=== PATIENT | male | born 1950 | race Caucasian/White ===

== ENCOUNTER 2024-07-05 12:52 | Inpatient (IN) | payer MEDICARE, SELFPAY ==
[2024-07-05 12:53] VITALS: BP 65/46; PULSE 112; RESP 12; TEMP 36.8; O2SAT 72
--- NOTE | 2024-07-05 12:59 | W.ED.MALEGU ---
HPI - Male Genitourinary General: Chief complaint: Urogenital-Male Stated complaint: needs a catheter placed Time Seen by Provider: 07/05/24 12:55 Source: EMS Mode of arrival: EMS Limitations: altered mental status History of Present Illness: 74-year-old male who has a history of lung cancer is here with his hospice nurse as he has pulled out his Buitrago's and they are unable to get a Buitrago placed him she states he needs a Buitrago for comfort due to urinary retention patient currently is altered which is his baseline and he is currently on hospice Related Data Home Medications Medication Instructions Recorded Confirmed Unable to Assess 07/05/24 07/05/24 Allergies Allergy/AdvReac Type Severity Reaction Status Date / Time No Known Allergies Allergy Verified 07/05/24 13:04 Review of Systems General: Reports: ROS unobtainable due to mental status Physical Exam Const: COMMON NORMALS: negative for patient oriented x3 HENMT: COMMON NORMALS: normocephalic and atraumatic HEAD & SCALP: normocephalic and atraumatic Eye: COMMON NORMALS: conjunctivae normal CONJUNCTIVA: Yes conjunctivae normal Neck/C-Spine: COMMON NORMALS: full ROM and supple Chest: COMMONS NORMALS: normal inspection of the chest Resp: EFFORT & INSPECTION: Yes respiratory distress Extremity: COMMON NORMALS: normal to inspection and full ROM Neuro: COMMON NORMALS: moves all extremities and no focal motor deficits; negative for patient oriented x3 Psych: COMMON NORMALS: mental status grossly normal, Normal thought process present and cooperative THOUGHT PROCESS: Normal thought process present Skin: COMMON NORMALS: no rashes or lesions noted and no wounds GENERAL SKIN EXAM: no rashes or lesions noted Course Vital Signs: Vital signs: Vital Signs Temperature 98.2 F 07/05/24 12:53 Pulse Rate 112 H 07/05/24 12:53 Respiratory Rate 12 07/05/24 12:53 Blood Pressure 65/46 07/05/24 12:53 Pulse Oximetry 72 L 07/05/24 12:53 Oxygen Delivery Me thod Nasal Cannula 07/05/24 12:53 Oxygen Flow Rate 5 07/05/24 12:53 MDM - Male Medical Decision Making Patient presents here originally for urinary retention was not able to place a Buitrago patient has been decompensated here in family wants him to be admitted here on hospice spoke to the hospitalist and will admit at this time Medical Records I reviewed the patient's medical records. No radiology studies performed this visit Discharge Plan Discharge Patient Disposition: Admitted As Inpatient Clinical Impression: Hospice care Condition: Stable Prescriptions: No Action Unable to Assess Coding Level of Care Code ED Health Service Coordinator for Chay Valdez
--- NOTE | 2024-07-05 13:39 | PC.PHAR ---
patient is on hospice, went into room and family told me that he was on hospice and not to worry about current med list as they take care of all that at this time
--- NOTE | 2024-07-05 14:53 | PM.HP ---
Providers/Chief Complaint Admitting Physician: Roseline Vasquez MD Chief Complaint: needs a catheter placed History of Present Illness Roberto Acevedo is a 74 year old male with past medical history of lung cancer COPD hypertension hyperlipidemia BPH who presented to the hospital today after pulling out his Buitrago catheter. Patient is currently on hospice. He was sent home with hospice from [facility] progressively worsening altered mental status hallucinations. Originally he was admitted there for [facility] for shortness of breath generalized weakness COVID A-fib with RVR bacterial pneumonia and was given IV antibiotics eventually discharged home however was readmitted for progressively worsening. Patient elected to go home with hospice. He has had a progressive decline in the last 24 hours. When patient was brought to the ER he was unresponsive pupils dilated. Blood pressure 60/40, tachycardic, saturating 87% on 5 L nasal cannula which is currently in his mouth. Family at bedside. Discussed with family regarding comfort measures and initially did discuss trying a coud? catheter. Nurse was unable to place a Buitrago earlier. Patient has a lot of swelling and bleeding from urethra at this time secondary to trauma earlier when he tried to pull it out. This with family that we do not have urology capabilities at this time but patient is too unstable to transfer to another facility with urology capabilities. We may attempt another 1 however if unable to place then we may just keep him comfortable with pain medications. Patient does have significant bladder distention which is palpable on abdominal exam. Had a discussion with the nurse and we discussed with family that we will hold off on trying another catheter as it may cause patient to a lot more pain secondary to significant swelling. Patient's family understands. At this time we will admit for comfort measures. Medications/Allergies Home Medications Medication Instructions Recorded Confirmed Last Taken Type Unable to Assess 07/05/24 07/05/24 Unknown History Allergies Allergy/AdvReac Type Severity Reaction Status Date / Time No Known Allergies Allergy Verified 07/05/24 13:04 Vitals/I&O/Wt Last Vital Signs Temp 98.2 F 07/05/24 12:53 Pulse 112 H 07/05/24 12:53 Resp 12 07/05/24 12:53 BP 65/46 07/05/24 12:53 Pulse Ox 72 L 07/05/24 12:53 O2 Del Method Nasal Cannula 07/05/24 12:53 O2 Flow Rate 5 01/19/25 12:53 Physical Exam Narrative: Patient laying in bed showing signs of agonal breathing Pupils dilated Abdomen palpated, significant bladder distention palpable. Patient does not grimace to palpation He is unresponsive Hypotensive tachycardic hypoxic. Limited physical exam secondary to comfort measures status. A&P Assessment and plan (1) Hospice care: (2) Lung cancer: (3) Hyperlipidemia: (4) Urinary retention: (5) BPH (benign prostatic hyperplasia): (6) Hypertension: (7) COPD (chronic obstructive pulmonary disease): (8) Goals of care, counseling/discussion: Plan #Comfort measures ? Admit to inpatient hospice at this time for comfort measures only as per family's request. ? Family's main concern is that if they took patient home he may and route. I believe it is reasonable to admit him at this time for inpatient hospice. ? 3 over the hospitalist to follow patient ? Will place comfort care orders at this time. Transfer to private room. Attestations Medical Necessity Statement*: Comfort measures Diagnoses Hospice care Z51.5 Lung cancer C34.90 Hyperlipidemia E78.5 Urinary retention R33.9 BPH (benign prostatic hyperplasia) N40.0 Hypertension I10 COPD (chronic obstructive pulmonary disease) J44.9 Goals of care, counseling/discussion Z71.89
[2024-07-05 15:17] VITALS: BP 65/45; PULSE 116; O2SAT 88
--- NOTE | 2024-07-05 15:25 | PC.NURSE ---
ATTEMPTED NIELSON INSERTION, UNSUCCESSFUL DUE TO TRAUMA AND SWELLING FROM PRIOR REMOVAL OF CATHETER.
--- NOTE | 2024-07-05 16:00 | PC.NURSE ---
Patient arrived to the floor agonal breathing with a respirations of 6 times a minute. Patient is pale and unresponsive. He arrived with many family members and Tricia with [facility]. Patient's family is to upset to be able to answer any of my question's at this time.
--- NOTE | 2024-07-05 16:00 | PC.NURSE ---
Patient is a hospice patient with three brunner and came to the ER because of urinary retention. Patient is unresponsive and patient's family is too upset to answer my question.
[2024-07-05 16:02] VITALS: BP 65/45; PULSE 116; O2SAT 87
[2024-07-05] MEDS: LORazepam 2 mg/mL INJ 1 mL IVP (16:07)
[2024-07-05] MEDS: morphine 10 mg/0.5 mL oral liq UD SUBLINGUAL (16:07)
--- NOTE | 2024-07-05 16:47 | PC.NURSE ---
Patient at this time. Dr. Vasquez notified. Hao Ayers notified and she will contact [facility]. [facility] nurse Rachel Clarke is at bedside along with family.
--- NOTE | 2024-07-05 17:02 | PC.NURSE ---
[facility] was contacted by Tricia at [phone].
--- NOTE | 2024-07-05 17:03 | PM.DDS ---
Discharge Providers DDS Date of Admission: 07/05/24 14:22 Date Summary Completed: 07/05/24 Attending Provider at Admission: Roseline Vasquez MD Time of : 16:49 Attending Provider at Discharge: Roseline Vasquez MD DS Diagnoses Hospital Diagnoses (1) Hospice care: (2) Lung cancer: (3) Hyperlipidemia: (4) Urinary retention: (5) BPH (benign prostatic hyperplasia): (6) Hypertension: (7) COPD (chronic obstructive pulmonary disease): (8) Goals of care, counseling/discussion: Reason for Visit Reason for Visit needs a catheter placed Summary Date and Time of Date of : 07/05/24 Time of : 16:49 Summary Summary: Patient at 1649. He was comfort measure status. Please see H&P for further details. Additional Data Family: at bedside Discharge Plan Discharge Patient Disposition: Condition: Prescriptions: No Action Unable to Assess Patient Instructions: Opioid Safety DS Attestations Time Spent in /Discharge Care*: less than 30 min Quality - AMI: AMI present?: No Quality - Stroke: CVA present?: No Quality - VTE: VTE present?: No Coding Level of Care Code 06676 Diagnoses Hospice care Z51.5 Lung cancer C34.90 Hyperlipidemia E78.5 Urinary retention R33.9 BPH (benign prostatic hyperplasia) N40.0 Hypertension I10 COPD (chronic obstructive pulmonary disease) J44.9 Goals of care, counseling/discussion Z71.89
--- NOTE | 2024-07-05 18:00 | PC.NURSE ---
Report given to medicine technologist nurse. Patient is awaiting to be picked up by home.
[2024-07-05 21:42] VITALS: BP 0/0; PULSE 0; RESP 0; TEMP -17.7; TEMP 0; O2SAT 0
--- NOTE | 2024-07-07 09:12 | PC.SOCIAL ---
summary Summary faxed to [facility] @ this time.
== END 2024-07-05 16:47 | disposition expired | DRG 951 ==
LOC: ER 14:33 → MEDSURG 15:10
PROVIDERS: Admitting Provider Internal Medicine; Emergency Provider Emergency Medicine; Visit Provider Internal Medicine
DX: Z51.5 Encounter for palliative care (principal); C34.90 Malignant neoplasm of unspecified part of unspecified bronchus or lung; S37.39XA Other injury of urethra, initial encounter; R40.4 Transient alteration of awareness; J44.9 Chronic obstructive pulmonary disease, unspecified; I10 Essential (primary) hypertension; E78.5 Hyperlipidemia, unspecified; N40.0 Benign prostatic hyperplasia without lower urinary tract symptoms; I48.91 Unspecified atrial fibrillation; R00.0 Tachycardia, unspecified; X58.XXXA Exposure to other specified factors, initial encounter; R33.9 Retention of urine, unspecified; I95.9 Hypotension, unspecified; R09.02 Hypoxemia; Z86.16 Personal history of COVID-19; Z87.01 Personal history of pneumonia (recurrent)
CPT/HCPCS: 99285; J2060